=== PATIENT | female | born 2000 | race Caucasian/White ===

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

== ENCOUNTER → 2020-01-28 | Outpatient (REF) | payer OTHER, MEDICAID | LOC: M SFHCPLAZ 13:41 | PROVIDERS: ATTEND Family Medicine | DX: Z12.4 Encounter for screening for malignant neoplasm of cervix (principal) ==

== ENCOUNTER → 2022-02-20 | Outpatient (REF) | payer OTHER, MEDICAID ==
[2022-02-20 18:27] LABS: FERRITIN 29.4 NG/ML (7.3-270.7)
[2022-02-20 18:29] LABS: PERCENT SATURATION 46.6 % (13.2-45.0)
== END ==
LOC: M LAB REF 16:19
PROVIDERS: ATTEND Internal Medicine
DX: R53.83 Other fatigue (principal)

== ENCOUNTER → 2023-07-02 | Outpatient (CLI) | payer OTHER | LOC: M PLALAB 14:53 | PROVIDERS: ATTEND Nurse Practitioner Family | DX: Z01.419 Encounter for gynecological examination (general) (routine) without abnormal findings (principal) ==

== ENCOUNTER → 2025-01-13 | Outpatient (CLI) | payer OTHER | LOC: M PLALAB 10:01 | PROVIDERS: ATTEND Student in an Organized Health Care Education/Training Program | DX: N93.9 Abnormal uterine and vaginal bleeding, unspecified (principal) ==